=== PATIENT | male | born 1975 | race Caucasian/White ===

== ENCOUNTER 2022-04-17 11:28 | Emergency (ER) | payer SELFPAY ==
[2022-04-17 12:30] LABS: HEMOGLOBIN 15.9 gm/dl (14.0-17.5); RED BLOOD COUNT 5.15 M/UL (4.20-5.50)
[2022-04-17 12:49] LABS: BUN/CREATININE RATIO 24 (0-10)
[2022-04-17] MEDS ORDERED: HYDROCODON-ACE1 EAC4 PO (14:52)
[2022-04-17] MEDS ORDERED: TORADOL 10 MG T10 MG PO (15:14)
[2022-04-17] MEDS ORDERED: ONDANSETRON ODT4 MG SL (15:14)
[2022-04-17] MEDS ORDERED: FLOMAX 0.4 MG0.4 MG PO (15:14)
== END 2022-04-17 15:45 | disposition home or self-care (01) ==
LOC: ER1 11:28
PROVIDERS: Physician Assistant
DX: N13.2 Hydronephrosis with renal and ureteral calculous obstruction (principal); E11.9 Type 2 diabetes mellitus without complications; E78.5 Hyperlipidemia, unspecified; I10 Essential (primary) hypertension; F17.200 Nicotine dependence, unspecified, uncomplicated; Z88.8 Allergy status to other drugs, medicaments and biological substances; Z79.82 Long term (current) use of aspirin
CPT/HCPCS: 80053; 81001; 83690; 85025; 87086; 93005; 96361; 96374; 96375; 99284; J1885; J2405